=== PATIENT | male | born 1970 | race Caucasian/White ===

== ENCOUNTER → 2017-07-06 | Outpatient (CLI) | payer MEDICARE, MEDICAID ==
--- NOTE | 2017-07-06 15:24 | XCELERA REPORT ---
[address] [address] Lower Extremity Venous Evaluation Name: ZULEYMA QUEZADA JR Age: 46 yrs Gender: Male : 1970 Patient Status: Outpatient Patient Location: Study Date: 07/06/2017 12:45 PM Procedure: Color flow and duplex imaging of the veins of the right lower extremity as well as the left Common Femoral vein. Reason For Study: PAIN Ordering Physician: ALEJANDRO PARRA PA-C Performed By: Emili Baumann Right Sided Venous Evaluation Normal vessel filling wall to wall, compression and augmentation as well as Colour flow down to the infrageniculate veins. Left Sided Venous Evaluation The left common femoral vein is fully compressible. Spontaneous and phasic flow is present in the left common femoral vein. Interpretation Summary No duplex evidence of DVT or obstruction in the right lower extremity nor in the left Common Femoral vein. : ALEJANDRO PARRA PA-C > Bony Sharp
== END ==
LOC: SP 12:34
PROVIDERS: ATTEND Physician Assistant
DX: M79.661 Pain in right lower leg (principal)
CPT/HCPCS: 93971

== ENCOUNTER 2019-09-01 09:32 | Day surgery (SDC) | payer MEDICARE, MEDICAID ==
[~2019-09-01 09:32] MED LIST: BUPIVACAINE HCL 0.75% INJ/PF (7.5 MG/1 ML) 10 ML SDV ONE; CHONDR SU A NA/HYALUR INTRAOC KIT (SURGICARE) ONE; DORZOLAMIDE HCL 2%/TIMOLOL MALEAT 0.5% OPH SOLN 10 ML OS PRN; EPINEPHRINE INJ/PF 1 MG/1 ML AMPULE ONE; HYALURONIDASE INJ 150 UNIT/1 ML VIAL ONE; KETOROLAC TROMETHAMINE 0.45% 4 DROP/0.4 ML DROPERETTE OS PRN; LIDOCAINE 1%/PHENYLEPHRINE 1.5% 1 ML VIAL ONE; LIDOCAINE 2% INJ-PF (20 MG/ML) 10 ML AMPUL ONE; TOBRAMYCIN SULFATE/DEXAMETH OPH OINTMENT 3.5 GM ONE
[2019-09-01] MEDS: TETRACAINE HCL 0.5% OPH SOLN 4 ML OS PRN ×3 (10:15→10:47)
[2019-09-01] MEDS: BESIFLOXACIN HCL 0.6% OPH SUSP 5 ML BOTTLE OS PRN ×3 (10:15→11:20)
[2019-09-01] MEDS: TROPICAMIDE 1% OPH SOLN 15 ML OS PRN ×3 (10:15→10:43)
[2019-09-01] MEDS: CYCLOPENTOLATE 0.2%/PHENYLEPHRINE 1% OPH SOLN 2 ML OS PRN ×3 (10:15→10:43)
[2019-09-01] MEDS ORDERED: TRYPAN BLUE 0.06 % OPH SOLN 0.5 ML DISP.SYRIN ONE (10:26)
[2019-09-01] MEDS ORDERED: MIDAZOLAM 2 MG/2 ML INJ ONE (10:27)
[2019-09-01] MEDS ORDERED: FENTANYL CITRATE INJ/PF 100 MCG/2 ML AMPUL ONE (10:27)
[2019-09-01] MEDS ORDERED: PROPOFOL INJ 200 MG/20 ML VIAL IV ONE (10:28)
--- NOTE | 2019-09-01 13:03 | Operative Report ---
Operative Report-[facility] Operative Report: DATE OF SURGERY: 09/01/2019 PREOPERATIVE DIAGNOSIS: Mature Cataract, left eye, trypan blue POSTOPERATIVE DIAGNOSIS: Mature Cataract, left eye, trypan blue OPERATION: Complex Cataract extraction with insertion of an IOL of the left eye and use of trypan blue dye due to white mature cataract with poor red reflex Intraocular Lens Model: [22.0 sn60wf] Reason for surgery was difficulty seeing faces SURGEON: True Blankenship MD ANESTHESIA: Topical and retrobulbar block 2% lidocaine, 0.75% marcaine, and vitrase PROCEDURE: After obtaining appropriate consent, the patient's left eye was prepped and draped in a sterile fashion as well as the surgeon in the sterile manner and cataract surgery was started. First a paracentesis blade was used to make a side-port incision. Viscoelastic was used to inflate the anterior chamber. Next a 2.4 mm incision was made with a 2.4 mm blade, clear corneal temporarily. A continuous capsulorrhexis was made using a cystotome and Utrata forceps. Following this hydrodissection was carried out to make the lens fully loose and mobile and it was rotated freely. Following this, a divide and conquer technique was used to phacoemulsify the lens.. The remaining cortex was removed with an irrigation/aspiration. Provisc was instilled into the capsular bag to inflate the bag. The intraocular lens was placed. The remaining viscoelastic material was removed with irrigation/aspiration. Following this, the incision was found to be watertight. Prior to making the capsulorhexis, Trypan dye was used to stain the anterior capsule due to poor red reflex. Besivance and Cosopt was instilled into the eye and a protective shield was placed over the eye. Tobradex ointment and a pressure patch was placed. The patient was returned to the postoperative recovery in a stable condition.
== END 2019-09-01 12:05 | disposition home or self-care (01) ==
LOC: SC 09:32
PROVIDERS: ATTEND Internal Medicine
DX: H25.89 Other age-related cataract (principal); H50.15 Alternating exotropia; H25.11 Age-related nuclear cataract, right eye; G80.8 Other cerebral palsy
CPT/HCPCS: 66982; V2632; J2250; J3490 ×5; A9270 ×2; J0171; J3010; J2704; J3470; J2370; 142

== ENCOUNTER 2020-09-06 12:35 | Emergency (ER) | payer MEDICARE, MEDICAID ==
[2020-09-06 13:08] VITALS: BP 121/76
--- NOTE | 2020-09-06 13:35 | ER Document Report ---
ED Medical Screen (RME) - General Chief Complaint: Vomiting Stated Complaint: VOMITING,NAUSEA Primary Care Provider: DEVANG STILES NP [Primary Care Provider] - Follow up as needed TRAVEL OUTSIDE OF THE [place] IN LAST 30 DAYS: No - HPI Notes: 09/06/20 13:33 Rapid Medical Exam HPI: Pt is a 49-year-old male presents with mother complaining of cough and vomiting the past few days. Patient is mentally handicapped and is mostly nonverbal per mom. She says he is having spells of coughing fits and then will vomit after this. He has tolerated a small amount of p.o. intake today. Denies abdominal pain, fevers, chest pain. Mom says patient made a comment that it feels like a feather in his throat. She called her doctor today and told her to go have him get a chest x-ray in the ER and then he would like to have a [id number] visit with them after. No known Covid Physical Exam: GENERAL: Well-appearing, well-nourished and in no acute distress. HEAD: Atraumatic, normocephalic. ENT: Moist mucous membranes. RESP: Respirations even and unlabored CV- Regular rate. NEURO: No focal neurological deficits. Moves all extremities spontaneously and on command. My involvement in this patients care was limited to a rapid initial assessment. A comprehensive ED assessment and evaluation of the patient, analysis of test results, treatment, and completion of the medical decision making process will be performed by other ER providers. - Related Data Allergies/Adverse Reactions: No Known Allergies Allergy (Unverified 08/29/19 09:25) Past Medical History - Past Medical History Cardiac Medical History: Denies: Hx Heart Attack, Hx Hypertension Pulmonary Medical History: Denies: Hx Asthma Neurological Medical History: Reports: Hx Seizures - A CHILD. Denies: Hx Cerebrovascular Accident GI Medical History: Denies: Hx Hepatitis, Hx Hiatal Hernia, Hx Ulcer Infectious Medical History: Denies: Hx Hepatitis Past Surgical History: Denies: Hx Open Heart Surgery, Hx Pacemaker Physical Exam - Vital signs Vitals: Temp Pulse Resp BP Pulse Ox 98.8 F 83 16 121/76 97 09/06/20 13:07 09/06/20 13:07 09/06/20 13:07 09/06/20 13:07 09/06/20 13:07 Course - Vital Signs Vital signs: Temp Pulse Resp BP Pulse Ox 98.8 F 83 16 121/76 97 09/06/20 13:07 09/06/20 13:07 09/06/20 13:07 09/06/20 13:07 09/06/20 13:07 Doctor's Discharge - Discharge Referrals: DEVANG STILES, [employer] [employer] [facility] [Primary Care Provider] - Follow up as needed
--- NOTE | 2020-09-06 14:43 | RADIOLOGY REPORT (SQ) ---
EXAM DESCRIPTION: CHEST SINGLE VIEW IMAGES COMPLETED DATE/TIME: 09/06/2020 2:30 pm REASON FOR STUDY: cough COMPARISON: None. EXAM PARAMETERS: NUMBER OF VIEWS: One view. TECHNIQUE: Single frontal radiographic view of the chest acquired. RADIATION DOSE: NA LIMITATIONS: None. FINDINGS: LUNGS AND PLEURA: No opacities, masses or pneumothorax. No pleural effusion. MEDIASTINUM AND HILAR STRUCTURES: No masses. Contour normal. HEART AND VASCULAR STRUCTURES: Heart normal in size. Normal vasculature. BONES: No acute findings. HARDWARE: None in the chest. OTHER: No other significant finding. IMPRESSION: NO ACUTE RADIOGRAPHIC FINDING IN THE CHEST. TECHNICAL DOCUMENTATION: JOB ID: [id number] 2010 [employer]- All Rights Reserved Reading location - IP/workstation name: [email or web address]
--- NOTE | 2020-09-06 14:57 | ER Document Report ---
ED Respiratory Problem - General Chief Complaint: Cough Stated Complaint: VOMITING,NAUSEA Time Seen by Provider: 09/06/20 14:01 Primary Care Provider: DEVANG STILES NP [Primary Care Provider] - Follow up as needed Notes: CHIEF COMPLAINT: Cough with vomiting after coughing HPI: 49-year-old male with history of mental retardation brought for evaluation of vomiting after coughing today. Patient has had a cough for 2 weeks. Patient was seen by the PCP last week placed on antibiotics, steroids, cough medication with codeine. Other reports patient still coughing and today has been having posttussive emesis. No fever. ROS: See HPI -unable to obtain from patient secondary to mental status. History is obtained from the mother who is the finishing machine tender for the patient MEDICATIONS: I agree with the patient medications as charted by the RN. ALLERGIES: I agree with the allergies as charted by the RN. PAST MEDICAL HISTORY/PAST SURGICAL HISTORY: Reviewed and agree as charted by RN. SOCIAL HISTORY: Reviewed and agree as charted by RN. FAMILY HISTORY: No significant familial comorbid conditions directly related to patient complaint EXAM: Reviewed vital signs as charted by RN. CONSTITUTIONAL: Alert and oriented and responds appropriately to questions. Well-appearing; well-nourished HEAD: Normocephalic; atraumatic EYES: Conjunctivae clear, sclerae non-icteric ENT: normal nose; no rhinorrhea; moist mucous membranes; pharynx without lesions noted NECK: Supple without meningismus; non-tender; no cervical lymphadenopathy, no masses CARD: RRR; no murmurs, no clicks, no rubs, no gallops; symmetric distal pulses RESP: Normal chest excursion without splinting or tachypnea; breath sounds clear and equal bilaterally; no wheezes, no rhonchi, no rales, pulse oximetry 97% on room air not hypoxic ABD/GI: Normal bowel sounds; non-distended; soft, non-tender, no rebound, no guarding; no palpable organomegaly or masses. BACK: The back appears normal EXT: Normal ROM in all joints; non-tender to palpation; no cyanosis, no effusions, no edema SKIN: Normal color for age and race; warm; dry; good turgor; no acute lesions noted NEURO: Moves all extremities equally; Motor and sensory function intact PSYCH: The patient's mood and manner are pleasant but limited. Grooming and personal hygiene are appropriate. MDM: 49-year-old male with MR brought for evaluation of cough with posttussive emesis. Apparently the primary care provider told the mother to bring the patient in to get a chest x-ray done and he would then have a video conference with the mother about management plan. He is on steroids has been on antibiotics as well as cough medication. He is having some posttussive emesis has had no coughing or emesis here. Will place patient on albuterol MDI with spacer and facemask given his MR have him follow-up with PCP if chest x-ray negative for infiltrate TRAVEL OUTSIDE OF THE [place] IN LAST 30 DAYS: No - Related Data Allergies/Adverse Reactions: No Known Allergies Allergy (Unverified 08/29/19 09:25) Past Medical History - Social History Smoking Status: Never Smoker Frequency of alcohol use: None Drug Abuse: None Family History: Reviewed & Not Pertinent Patient has homicidal ideation: No - Past Medical History Cardiac Medical History: Denies: Hx Heart Attack, Hx Hypertension Pulmonary Medical History: Denies: Hx Asthma Neurological Medical History: Reports: Hx Seizures - A CHILD. Denies: Hx Cerebrovascular Accident GI Medical History: Denies: Hx Hepatitis, Hx Hiatal Hernia, Hx Ulcer Infectious Medical History: Denies: Hx Hepatitis Past Surgical History: Denies: Hx Open Heart Surgery, Hx Pacemaker Physical Exam - Vital signs Vitals: Temp Pulse Resp BP Pulse Ox 98.8 F 83 16 121/76 97 09/06/20 13:07 09/06/20 13:07 09/06/20 13:07 09/06/20 13:07 09/06/20 13:07 Course - Vital Signs Vital signs: Temp Pulse Resp BP Pulse Ox 98.8 F 83 16 121/76 97 09/06/20 13:07 09/06/20 13:07 09/06/20 13:07 09/06/20 13:07 09/06/20 13:07 - Laboratory Results Critical Laboratory Results Reviewed: No Critical Results - Radiology Results Critical Radiology Results Reviewed: No Critical Results Discharge - Discharge Clinical Impression: Acute bronchospasm due to viral infection, Post-tussive emesis Condition: Stable Disposition: HOME, SELF-CARE Additional Instructions: Continue previous medications. Use the albuterol inhaler 2 puffs every 4 hours as needed for spasm or cough. Follow-up with your primary care provider by video link as discussed for further evaluation and management. Chest x-ray today did not show evidence of pneumonia Prescriptions: Albuterol Sulfate [Proair HFA Inhalation Aerosol 8.5 gm MDI] 2 puff IH Q4H PRN #1 mdi PRN Reason: Referrals: DEVANG STILES, [employer] [Primary Care Provider] - Follow up as needed
== END 2020-09-06 15:35 | disposition home or self-care (01) ==
LOC: ER 12:35
DX: B34.9 Viral infection, unspecified (principal); J98.01 Acute bronchospasm; R05 Cough; R11.10 Vomiting, unspecified; F79 Unspecified intellectual disabilities
CPT/HCPCS: 71045; 99283